=== PATIENT | male | born 1985 | race American Indian/Alaskan Native ===

== ENCOUNTER 2022-03-28 01:26 | Emergency (ER) | payer SELFPAY ==
[2022-03-28 02:47] VITALS: BP 146/84
[2022-03-28 04:44] LABS: Basophils % (Auto) 0.2 % (0.0-1.8); Eosinophils % (Auto) 0.3 % (0.0-4.3); Hematocrit 42.5 % (35.5-45.6); Hemoglobin 13.9 gm/dl (11.8-15.2); Lymphocytes # (Auto) 1.4 K/mm3 (1.2-5.4); Mean Corpuscular HGB Conc 33 % (32-34); Mean Corpuscular Volume 86 fl (84-94); Monocytes # (Auto) 0.7 K/mm3 (0.0-0.8); Monocytes % (Auto) 11.9 % (0.0-7.3); Platelet Count 286 K/mm3 (140-440); Red Blood Count 4.93 M/mm3 (3.65-5.03); Red Cell Distribution Width 14.9 % (13.2-15.2)
[2022-03-28 04:45] LABS: Alanine Aminotransferase 16 units/L (7-56); Albumin 4.7 g/dL (3.9-5); BUN/Creatinine Ratio 6; Blood Urea Nitrogen 6 mg/dL (9-20); Calcium 9.3 mg/dL (8.4-10.2); Hemolysis Index 3
[2022-03-28 06:02] LABS: Calcium Oxalate Crystals,Urine 1+; Mucus,Urine 3+ /HPF
[2022-03-28 06:05] LABS: Color,Urine Dark Yellow (Yellow)
[2022-03-28 06:06] LABS: Bilirubin,Urine NEG (Negative); Blood,Urine Trace (Negative); Urobilinogen,Urine < 2.0 mg/dL (<2.0)
== END 2022-03-28 17:19 | disposition left against medical advice (07) ==
LOC: ED 01:26
DX: R10.31 Right lower quadrant pain (principal); Z53.21 Procedure and treatment not carried out due to patient leaving prior to being seen by health care provider
CPT/HCPCS: 36415; 80053; 81001; 85025

== ENCOUNTER 2022-07-02 17:41 | Emergency (ER) | payer SELFPAY ==
[2022-07-02 18:05] VITALS: BP 136/94
== END 2022-07-03 02:00 | disposition left against medical advice (07) ==
LOC: ED 17:41
DX: Z13.30 Encounter for screening examination for mental health and behavioral disorders, unspecified (principal); Z53.21 Procedure and treatment not carried out due to patient leaving prior to being seen by health care provider